=== PATIENT | female | born 1950 | race Caucasian/White ===

== ENCOUNTER 2020-06-29 08:25 | Emergency (ER) | payer MEDICARE, BC ==
[2020-06-29] MEDS ORDERED: TETRACAINE HCL 0.5% OPH SOLN 4 ML OS ONE (12:19)
[2020-06-29] MEDS ORDERED: KETOROLAC TROMETHAMINE 0.45% 4 DROP/0.4 ML DROPERETTE OS ONE (12:19)
[2020-06-29] MEDS: POLYMYXIN B SULFATE/TMP OPH SOLN (10 ML/ER DISP) OS ONE ×2 (12:26→12:45)
[2020-06-29] MEDS ORDERED: ERYTHROMYCIN 0.5% OPH OINT 1 GM UNIT DOSE OU ONE (12:38)
--- NOTE | 2020-06-29 12:40 | ER Document Report ---
Entered by BERTHA RAMIREZ SCRIBE 06/29/20 1220 Acting as scribe for:RADHA GILLIAM MD ED Eye Complaint - General Chief Complaint: Eye Pain Stated Complaint: EYE PAIN Time Seen by Provider: 06/29/20 11:59 Primary Care Provider: NUVIA SANCHES MD [Primary Care Provider] - Follow up as needed Information source: Patient Notes: This 70 year old female patient presents to the emergency department today with complaints of left eye pain. Patient reports that she was outside yesterday doing yard work and she thinks something may have flown into her eye. Patient s tates she was wearing sunglasses. Patient went to the eye care center yesterday and she was told "there was nothing in her eye and it wasn't scratched". She reports that the person that saw her at the eye care center also told her that if "numbing drops helped her eye pain then it couldn't be scratched". - Related Data Allergies/Adverse Reactions: No Known Allergies Allergy (Verified 06/29/20 09:33) Past Medical History - General Information source: Patient - Social History Smoking Status: Former Smoker - quit in 1973 at age 24 Cigarette use (# per day): No Frequency of alcohol use: None Drug Abuse: None Lives with: Family Family History: Reviewed & Not Pertinent Patient has homicidal ideation: No - Medical History Medical History: Negative Past Surgical History: Reports: Hx Appendectomy, Hx Breast Surgery - biopsy - benign, Hx Inguinal Hernia - right, Hx Orthopedic Surgery - Left radius ORIF Review of Systems - Review of Systems Constitutional: No symptoms reported EENT: See HPI, Eye pain - left Cardiovascular: No symptoms reported Respiratory: No symptoms reported Gastrointestinal: No symptoms reported Genitourinary: No symptoms reported Female Genitourinary: No symptoms reported Musculoskeletal: No symptoms reported Skin: No symptoms reported Hematologic/Lymphatic: No symptoms reported Neurological/Psychological: No symptoms reported -: Yes All other systems reviewed and negative Physical Exam - Vital signs Vitals: Temp Pulse Resp BP Pulse Ox 97.8 F 64 17 196/68 H 97 06/29/20 08:30 06/29/20 08:30 06/29/20 08:30 06/29/20 08:30 06/29/20 08:30 - General General appearance: Appears well, Alert In distress: None - HEENT Head: Normocephalic, Atraumatic Eyes: Other - There is slight edema to the lids of the left eye. Conjunctiva: Other - There is slight injection of the conjunctiva of the left eye. Extraocular movements intact: Yes Pupils: PERRL Corrective lenses worn: No Anterior chamber: Normal Nerve palsy: No - Respiratory Respiratory status: No respiratory distress - Cardiovascular Rhythm: Regular - Abdominal Inspection: Normal - Back Back: Normal - Extremities General upper extremity: Normal inspection General lower extremity: Normal inspection - Neurological Neuro grossly intact: Yes - Psychological Associated symptoms: Normal affect, Normal mood - Skin Skin Temperature: Warm Skin Moisture: Dry Skin Color: Normal Course - Re-evaluation Re-evalutation: 06/29/20 12:37 The left eye was anesthetized with tetracaine. Fluorescein stain was applied. Examination under Manning lamp shows at least 2 distinct small scratches in the left cornea and the upper outer quadrant. The eye was irrigated with normal saline. Homatropine drops placed in the left eye. Acular drops were placed in the left eye. - Vital Signs Vital signs: Temp Pulse Resp BP Pulse Ox 98.5 F 64 16 193/81 H 100 06/29/20 12:50 06/29/20 12:50 06/29/20 12:50 06/29/20 12:50 06/29/20 12:50 Procedures - Eye Procedure Left Time completed: 12:30 Eye Irrigated w/ Saline (ccs): 10 Alcaine Drops Administered: Yes Acular drops administered: Left Fluorescein applied: Left Antibiotic Oinment/Drps Admin: Left eye Cyclogel 2 Drops Administered: Left eye - Homatropine Slit lamp used: No Notes: 06/29/20 12:35 Manning lamp was used Discharge - Discharge Clinical Impression: Corneal abrasion, left Qualifiers: Encounter type: initial encounter Qualified Code(s): S05.02XA - Injury of conjunctiva and corneal abrasion without foreign body, left eye, initial encounter Condition: Stable Disposition: HOME, SELF-CARE Additional Instructions: Corneal Abrasion: You have a corneal abrasion, a scratch on the surface of the eye. The pain of a corneal abrasion feels like a sharp particle in the eye. Usually, antibiotics are placed in the eye to prevent infection. Occasionally, medication will be placed in the eye to dilate the pupil. This is done to relieve some of your discomfort and is only temporary. Pain medication may be required. Don't drive or operate machinery until you have the use of both your eyes. The abrasion usually is healed in one or two days. A follow-up examination to confirm healing is recommended. Call the doctor or return at once if you develop severe pain, decreasing vision, eye swelling, or purulent drainage. Use the erythromycin ophthalmic ointment--place a small ribbon in the lower lid of the left eye every 6 hours. Use the ketorolac eyedrops as dispensed and prescribed--1 drop in the left eye every 4 hours as needed for pain for the next 2 to 3 days. Your left eye was dilated to reduce discomfort when you are exposed to light. Avoid wind and bright sunlight for the next few days. Follow-up with a local eye doctor if not improving. RETURN TO THE EMERGENCY ROOM IF ANY NEW OR WORSENING SYMPTOMS. Prescriptions: Ketorolac Ophthalmic Drops 0.5% 1 drop OS Q4 PRN #5 ml PRN Reason: Referrals: NUVIA SANCHES MD [Primary Care Provider] - Follow up as needed I personally performed the services described in the documentation, reviewed and edited the documentation which was dictated to the scribe in my presence, and it accurately records my words and actions.
[2020-06-29 13:59] VITALS: BP 160/84
== END 2020-06-29 13:59 | disposition home or self-care (01) ==
LOC: ER 08:25
DX: S05.02XA Injury of conjunctiva and corneal abrasion without foreign body, left eye, initial encounter (principal); H57.12 Ocular pain, left eye; W22.8XXA Striking against or struck by other objects, initial encounter; Z87.891 Personal history of nicotine dependence
CPT/HCPCS: 99283; A9270 ×2; J3490

== ENCOUNTER 2020-08-18 21:54 | Emergency (ER) | payer MEDICARE, BC ==
[2020-08-18] MEDS ORDERED: CLONIDINE HCL 0.1 MG TABLET PO ONE (23:05)
--- NOTE | 2020-08-18 23:07 | ER Document Report ---
ED Medical Screen (RME) - General Chief Complaint: High Blood Pressure Stated Complaint: HIGH BLOOD PRESSURE Time Seen by Provider: 08/18/20 23:00 Primary Care Provider: NUVIA SANCHES MD [Primary Care Provider] - Follow up as needed Mode of Arrival: Ambulatory Information source: Patient Notes: HPI; 70-year-old female with no previous medical problems presents to the emergency room complaining of fluttering in her chest for the past week. Tonight she checked her blood pressure was 200/100 at home. She has no known history of hypertension. Has a family history of hypertension. She denies any chest pain, no shortness of breath or difficulty breathing. Denies headache. Patient was noted to have elevated blood pressure in triage. PE: Alert and oriented x3. Lungs: Clear to auscultation without rales, rhonchi, wheezes. Heart: Irregular rate rhythm without murmurs, rubs, gallops. I have greeted and performed a rapid initial assessment of this patient. A comprehensive ED assessment and evaluation of the patient, analysis of test results and completion of the medical decision making process will be conducted by additional ED providers. I have specifically instructed the patient or family members with the patient to immediately return to any nursing staff should anything change in the patient's condition or with their chief complaint. TRAVEL OUTSIDE OF THE [place] IN LAST 30 DAYS: No - Related Data Allergies/Adverse Reactions: No Known Allergies Allergy (Verified 06/29/20 09:33) Past Medical History Past Surgical History: Reports: Hx Abdominal Surgery - hernia repair, Hx Appendectomy, Hx Breast Surgery - biopsy - benign, Hx Inguinal Hernia - right, Hx Orthopedic Surgery - Left radius ORIF Physical Exam - Vital signs Vitals: Temp Pulse Resp BP Pulse Ox 97.9 F 78 15 225/92 H 97 08/18/20 22:03 08/18/20 22:03 08/18/20 22:03 08/18/20 22:03 08/18/20 22:03 Course - Vital Signs Vital signs: Temp Pulse Resp BP Pulse Ox 97.9 F 78 15 225/92 H 97 08/18/20 22:03 08/18/20 22:03 08/18/20 22:03 08/18/20 22:03 08/18/20 22:03 Doctor's Discharge - Discharge Referrals: NUVIA SANCHES MD [Primary Care Provider] - Follow up as needed
--- NOTE | 2020-08-18 23:33 | RADIOLOGY REPORT (SQ) ---
EXAM DESCRIPTION: XR CHEST 2 VIEWS COMPLETED DATE/TME: 08/18/2020 23:04 CLINICAL HISTORY: 70 years, Female, heart fluttering COMPARISON: None. NUMBER OF VIEWS: 2 TECHNIQUE: 2 view chest LIMITATIONS: None. FINDINGS: Heart size normal. Subsegmental atelectasis left lung base. COPD. Osteopenia. No pneumothorax IMPRESSION: COPD. No acute cardiopulmonary process copyright 2010 [employer]- All Rights Reserved
[2020-08-18 23:53] LABS: ABSOLUTE EOSINOPHILS # (AUTO) 0.1 10^3/uL (0.0-0.6); ABSOLUTE MONOCYTES (AUTO) 0.6 10^3/uL (0.1-1.4); ABSOLUTE NEUT (AUTO) 4.8 10^3/uL (1.7-8.2); BASOPHILS % (AUTO) 0.6 % (0-2); HEMATOCRIT 43.8 % (36.0-47.0); LYMPHOCYTES % (AUTO) 26.9 % (13-45); MEAN CORPUSCULAR HEMOGLOBIN 29.9 pg (27.0-33.4); MEAN CORPUSCULAR HGB CONC 34.3 g/dL (32.0-36.0); MEAN CORPUSCULAR VOLUME 87 fl (80-97); MONOCYTES % (AUTO) 7.8 % (3-13); PLATELET COUNT 184 10^3/uL (150-450); RED BLOOD COUNT 5.03 10^6/uL (3.72-5.28); RED CELL DISTRIBUTION WIDTH 14.5 % (11.5-14.0); SEGMENTED NEUTROPHILS % (AUTO) 63.7 % (42-78); TOTAL CELLS COUNTED % (AUTO) 100 %; WHITE BLOOD COUNT 7.6 10^3/uL (4.0-10.5)
[2020-08-19 00:10] LABS: ALBUMIN 4.6 g/dL (3.5-5.0); ALKALINE PHOSPHATASE 100 U/L (38-126); ANION GAP 8 (5-19); ASPARTATE AMINO TRANSFERASE 28 U/L (14-36); BILIRUBIN,DIRECT 0.3 mg/dL (0.0-0.4); BILIRUBIN,TOTAL 0.7 mg/dL (0.2-1.3); BLOOD UREA NITROGEN 17 mg/dL (7-20); CALCIUM 9.6 mg/dL (8.4-10.2); CARBON DIOXIDE 29 mmol/L (22-30); CHLORIDE 106 mmol/L (98-107); CREATINE KINASE 87 U/L (30-135); GLUCOSE 109 mg/dL (75-110); POTASSIUM 4.3 mmol/L (3.6-5.0); TOTAL PROTEIN 7.2 g/dL (6.3-8.2)
[2020-08-19 00:23] LABS: CREATINE KINASE MB 1.64 ng/mL (<4.55)
--- NOTE | 2020-08-19 00:23 | EKG REPORT ---
SEVERITY:- ABNORMAL ECG - SINUS RHYTHM PROBABLE LEFT ATRIAL ABNORMALITY LEFT VENTRICULAR HYPERTROPHY : Confirmed by: Zachariah Aleman 19-Aug-2020 00:22:16
[2020-08-19 00:25] LABS: TROPONIN I < 0.012 ng/mL
--- NOTE | 2020-08-19 00:45 | ER Document Report ---
ED General - General Chief Complaint: High Blood Pressure Stated Complaint: HIGH BLOOD PRESSURE Time Seen by Provider: 08/18/20 23:00 Primary Care Provider: GRACE OTERO MD [ACTIVE STAFF] - 08/21/20 Mode of Arrival: Ambulatory Notes: Patient is a 70-year-old female that comes emergency department for chief complaint of palpitations. She states for the past couple of days she has felt a "fluttering sensation in the chest intermittently, she states it is a "nervous feeling". She denies any pain, dizziness, headache, nausea, vomiting, fever, shortness of breath, or any other complaints. She states that at home they checked her blood pressure and it was 200/100. Patient states that her average blood pressure is 120s systolic, she has never been on blood pressure medication in the past although she does have a family history of this. She denies diet change, increasing caffeine, denies smoking, recreational drugs. Patient and states she is normally incredibly healthy, takes no daily medications, but does follow-up with primary care Dr. De Jesus. Patient drinks 2 cups of caffeine in the morning. Patient does sleep poorly with intermittent naps. She denies recent trauma/injury as well. Patient was given 0.1 mg of clonidine in triage. TRAVEL OUTSIDE OF THE [place] IN LAST 30 DAYS: No - Related Data Allergies/Adverse Reactions: No Known Allergies Allergy (Verified 06/29/20 09:33) Home Medications: vitamin supplements Past Medical History - General Information source: Patient - Social History Smoking Status: Never Smoker Frequency of alcohol use: Occasional Drug Abuse: None Lives with: Family Family History: Reviewed & Not Pertinent Past Surgical History: Reports: Hx Abdominal Surgery - hernia repair, Hx Appendectomy, Hx Breast Surgery - biopsy - benign, Hx Inguinal Hernia - right, Hx Orthopedic Surgery - Left radius ORIF Review of Systems - Review of Systems Constitutional: See HPI EENT: No symptoms reported Cardiovascular: See HPI Respiratory: No symptoms reported Gastrointestinal: No symptoms reported Genitourinary: No symptoms reported Female Genitourinary: No symptoms reported Musculoskeletal: No symptoms reported Skin: No symptoms reported Hematologic/Lymphatic: No symptoms reported Neurological/Psychological: No symptoms reported Physical Exam - Vital signs Vitals: Temp Pulse Resp BP Pulse Ox 97.9 F 78 15 225/92 H 97 08/18/20 22:03 08/18/20 22:03 08/18/20 22:03 08/18/20 22:03 08/18/20 22:03 - Notes Notes: GENERAL: Patient smiling, talkative, very well-appearing. Patient appears younger than her stated age. HEAD: Normocephalic, atraumatic. EYES: Pupils equal, round, and reactive to light. Extraocular movements intact. ENT: Oral mucosa moist, tongue midline. Oropharynx unremarkable. Airway patent. NECK: Full range of motion. Supple. Trachea midline. No lymphadenopathy. LUNGS: Clear to auscultation bilaterally, no wheezes, rales, or rhonchi. No respiratory distress. Non-tender chest wall. HEART: Regular rate and rhythm. No murmur ABDOMEN: Soft, non-tender. Non-distended. Bowel sounds present in all 4 quadrants. GENITOURINARY: Deferred EXTREMITIES: Moves all 4 extremities spontaneously. No edema, normal radial and dorsalis pedis pulses bilaterally. No cyanosis. BACK: no cervical, thoracic, lumbar midline tenderness. No saddle anesthesia, normal distal neurovascular exam. Moves all extremities in full range of motion. NEUROLOGICAL: Alert and oriented x3. Normal speech. Cranial nerves II through XII grossly intact. Strength 5/5 in all extremities. PSYCH: Normal affect, normal mood. SKIN: Warm, dry, normal turgor. No rashes or lesions noted. Course - Re-evaluation Re-evalutation: On my exam patient is alert, well-appearing, has a neurological exam that is normal, has no complaints. She was initially significantly hypertensive, she was given 0.1 mg of clonidine in triage, patient will be monitored. Patient already had a work-up pending, she is essentially asymptomatic hypertension at this time with a work-up for palpitations. CBC, chemistry unremarkable, troponin unremarkable, thyroid studies unremarkable, EKG and chest x-ray with no acute findings, there is LVH on the EKG however. Despite multiple hours of monitoring before labs came back patient did not have elevating blood pressures when the clonidine most likely wore off. Patient states her blood pressure is normally very good and she has not had issues with this in the past. Palpitations have been intermittent, she again denies any headache or chest pain, she has no current complaints. I discussed details. Patient states she does have good primary care follow-up and can have her blood pressure rechecked for additional management, I discussed follow-up with cardiology for palpitations, I discussed strict return precautions. Patient and state appreciation and agreement with plan. - Vital Signs Vital signs: Temp Pulse Resp BP Pulse Ox 97.9 F 78 17 135/67 H 97 08/18/20 22:03 08/18/20 22:03 08/19/20 03:31 08/19/20 03:31 08/19/20 03:31 - Laboratory Result Diagrams: 08/18/20 23:33 08/18/20 23:33 Laboratory results interpreted by me: 08/18/20 23:33 RDW 14.5 H - EKG Interpretation by Me Additional EKG results interpreted by me: EKG shows sinus rhythm at a rate of 65, QTC of 458, left axis deviation. No T wave inversions or ST segment changes in consecutive leads. Discharge - Discharge Clinical Impression: Palpitations, Elevated blood pressure reading Condition: Stable Disposition: HOME, SELF-CARE Additional Instructions: Your blood pressure was elevated tonight, however your monitoring does not show any concerning findings. Your work-up does not show any concerning findings at this time either. The recommendation is that you keep a blood pressure journal (take your blood pressure 2-3 times a day, record this value, do this for approximately 1 week, show this to your primary care provider for additional management of your blood pressure), and follow-up with either primary care or the cardiology referral for additional evaluation of palpitations. See referral. Return if you worsen including severe headache, chest pain, passing out, difficulty breathing, or any other concerning or worsening symptoms. Referrals: GRACE OTERO MD [ACTIVE STAFF] - 08/21/20
[2020-08-19 02:46] LABS: FREE T4 (FREE THYROXINE) 1.09 ng/dL (0.78-2.19)
[2020-08-19 03:00] LABS: THYROID STIMULATING HORMONE 2.47 uIU/mL (0.47-4.68)
[2020-08-19 03:50] VITALS: BP 135/67
== END 2020-08-19 04:03 | disposition home or self-care (01) ==
LOC: ER 21:54
DX: R00.2 Palpitations (principal); R03.0 Elevated blood-pressure reading, without diagnosis of hypertension; J44.9 Chronic obstructive pulmonary disease, unspecified; I51.7 Cardiomegaly; Z82.49 Family history of ischemic heart disease and other diseases of the circulatory system
CPT/HCPCS: 93005; 99285; 36415; 84439; 82553; 82550; 83735; 84443; 85025; 80053; 84484; 71046; 93010; A9270

== ENCOUNTER → 2020-11-11 | Outpatient (CLI) | payer MEDICARE, BC ==
[2020-11-11 08:12] LABS: ABSOLUTE BASOPHILS # (AUTO) 0.1 10^3/uL (0.0-0.2); ABSOLUTE EOSINOPHILS # (AUTO) 0.1 10^3/uL (0.0-0.6); ABSOLUTE LYMPHOCYTES (AUTO) 1.6 10^3/uL (0.5-4.7); ABSOLUTE MONOCYTES (AUTO) 0.4 10^3/uL (0.1-1.4); ABSOLUTE NEUT (AUTO) 3.4 10^3/uL (1.7-8.2); BASOPHILS % (AUTO) 1.1 % (0-2); HEMATOCRIT 41.8 % (36.0-47.0); HEMOGLOBIN 14.1 g/dL (12.0-15.5); LYMPHOCYTES % (AUTO) 29.3 % (13-45); MEAN CORPUSCULAR HEMOGLOBIN 29.3 pg (27.0-33.4); MEAN CORPUSCULAR HGB CONC 33.8 g/dL (32.0-36.0); MEAN CORPUSCULAR VOLUME 87 fl (80-97); MONOCYTES % (AUTO) 7.5 % (3-13); PLATELET COUNT 166 10^3/uL (150-450); RED BLOOD COUNT 4.82 10^6/uL (3.72-5.28); RED CELL DISTRIBUTION WIDTH 14.5 % (11.5-14.0); SEGMENTED NEUTROPHILS % (AUTO) 61.1 % (42-78); TOTAL CELLS COUNTED % (AUTO) 100 %; WHITE BLOOD COUNT 5.6 10^3/uL (4.0-10.5)
[2020-11-11 08:38] LABS: ALBUMIN 4.1 g/dL (3.5-5.0); ALKALINE PHOSPHATASE 79 U/L (38-126); ANION GAP 7 (5-19); ASPARTATE AMINO TRANSFERASE 28 U/L (14-36); BILIRUBIN,DIRECT 0.2 mg/dL (0.0-0.4); BLOOD UREA NITROGEN 13 mg/dL (7-20); CALCIUM 9.6 mg/dL (8.4-10.2); CARBON DIOXIDE 31 mmol/L (22-30); CHLORIDE 105 mmol/L (98-107); CHOLESTEROL 215.41 mg/dL (0-200); GLUCOSE 88 mg/dL (75-110); TOTAL PROTEIN 6.8 g/dL (6.3-8.2); TRIGLYCERIDES 132 mg/dL (<150)
[2020-11-11 08:56] LABS: DIRECT LDL 119 mg/dL (<100)
== END ==
LOC: OD 07:17
PROVIDERS: ATTEND Family Medicine Geriatric Medicine
DX: I10 Essential (primary) hypertension (principal); E66.3 Overweight; Z79.899 Other long term (current) drug therapy
CPT/HCPCS: 36415; 80053; 80061; 82306; 84443; 85025